=== PATIENT | female | born 1960 | race Caucasian/White ===

== ENCOUNTER → 2018-12-07 | Outpatient (REF) | payer OTHER ==
[2018-12-07 13:08] LABS: PLATELET COUNT, AUTOMATED 251 K/uL (150-450)
--- NOTE | 2018-12-07 16:10 | RADIOLOGY IMAGING REPORT ---
[place] [facility] [place] Tabitha Montanez : 1960 MR: [id number] V: [id number] EXAM DATE: ORDERING PHYSICIAN: SAMMI PEREZ TECHNOLOGIST: Location: [facility] - [place] Patient: Tabitha Montanez : 1960 Visit/Account:[id number] Date of Sevice: 12/07/2018 EXAMINATION: CTA of the chest with IV contrast HISTORY: Shortness of breath TECHNIQUE: Pulmonary embolus protocol - Thin axial CT images of the chest were obtained with IV con trast during maximal pulmonary arterial opacification. Reconstruction of the source data includes mul tiplanar 2D coronal and sagittal reconstructed images, and 3D coronal and sagittal MIP images. Repres entative images have been stored on PACS. One of the following dose optimization techniques was utilized in the performance of this exam: Autom ated exposure control; adjustment of the mA and/or kV according to the patient's size; or use of an i terative reconstruction technique. Specific details can be referenced in the facility's radiology C T exam operational policy. Contrast: 75 mL of IV Isovue-370. COMPARISON: None. FINDINGS: Pulmonary arteries: The pulmonary arteries are well opacified, without suspicious filling defect. Heart, aorta, and great vessels: Normal caliber thoracic aorta. Normal heart size. No pericardial effusion. Lungs and pleura: There are a few strands of scarring or atelectasis in the lingula and left lower l obe. No suspicious focal consolidation. The central airways are patent. No pleural effusion or pne umothorax. Mediastinum and vero: Negative. Visualized upper abdomen: Unremarkable. Chest wall: Negative. Bones: No acute osseous findings. IMPRESSION: 1. No evidence of pulmonary embolism. 2. No other acute findings in the chest. Report Dictated By: Avelino Reynolds MD at 12/07/2018 3:55 PM Report E-Signed By: Avelino Reynolds MD at 12/07/2018 4:02 PM WSN:[id number]
== END ==
PROVIDERS: ATTEND Nurse Practitioner Family
DX: R06.02 Shortness of breath (principal); R11.0 Nausea
CPT/HCPCS: 71275; 84484; 85025; 85379; Q9967; 36415; 82040; 82247; 82310; 82374; 82435; 82565; 82947; 84075; 84132; 84155; 84295; 84450; 84460; 84520

== ENCOUNTER → 2018-12-07 | Outpatient (CLI) | payer OTHER ==
[~2018-12-07] MED LIST: IOPAMIDOL 76% 100 ML INFUS BTL 100 ML ONE; NS(*) 0.9% 50 ML BAG 50 ML ONE
--- NOTE | 2018-12-09 09:41 | RADIOLOGY IMAGING REPORT ---
[place] [facility] [place]: Tabitha Montanez : 1960 MR: [id number] V: [id number] EXAM DATE: ORDERING PHYSICIAN: SAMMI PEREZ TECHNOLOGIST: Location: [facility] - [place] Patient: Tabitha Montanez : 1960 Visit/Account:[id number] Date of Sevice: 12/07/2018 EXAMINATION: CTA of the chest with IV contrast HISTORY: Shortness of breath TECHNIQUE: Pulmonary embolus protocol - Thin axial CT images of the chest were obtained with IV con trast during maximal pulmonary arterial opacification. Reconstruction of the source data includes mul tiplanar 2D coronal and sagittal reconstructed images, and 3D coronal and sagittal MIP images. Repres entative images have been stored on PACS. One of the following dose optimization techniques was utilized in the performance of this exam: Autom ated exposure control; adjustment of the mA and/or kV according to the patient's size; or use of an i terative reconstruction technique. Specific details can be referenced in the facility's radiology C T exam operational policy. Contrast: 75 mL of IV Isovue-370. COMPARISON: None. FINDINGS: Pulmonary arteries: The pulmonary arteries are well opacified, without suspicious filling defect. Heart, aorta, and great vessels: Normal caliber thoracic aorta. Normal heart size. No pericardial effusion. Lungs and pleura: There are a few strands of scarring or atelectasis in the lingula and left lower l obe. No suspicious focal consolidation. The central airways are patent. No pleural effusion or pne umothorax. Mediastinum and vero: Negative. Visualized upper abdomen: Unremarkable. Chest wall: Negative. Bones: No acute osseous findings. IMPRESSION: 1. No evidence of pulmonary embolism. 2. No other acute findings in the chest. Report Dictated By: Avelino Reynolds MD at 12/07/2018 3:55 PM Report E-Signed By: Avelino Reynolds MD at 12/07/2018 4:02 PM WSN:[id number]
== END ==
LOC: CT 14:58
PROVIDERS: ATTEND Nurse Practitioner Family
DX: R06.00 Dyspnea, unspecified (principal)
CPT/HCPCS: 71275; J7050; Q9967